=== PATIENT | male | born 1995 | race Caucasian/White ===

== ENCOUNTER 2021-02-06 12:45 | Emergency (ER) | payer OTHER, SELFPAY ==
[2021-02-06 12:50] VITALS: BP 137/92; PULSE 89; RESP 16; TEMP 37.6; O2SAT 100
--- NOTE | 2021-02-06 12:55 | ED.ABDPAIN ---
HPI - Abdominal Pain General Chief Complaint: Abdominal Pain Stated Complaint: abdominal pain Time Seen by Provider: 02/06/21 12:55 Source: patient and RN notes reviewed History of Present Illness HPI narrative: Patient is a 25-year-old male who presents the urgent care with complaints of right upper abdominal pain. Patient states is been ongoing for approximately 3 weeks and seems to worsen after eating. Patient states that around that time he was helping his mother get her riding lawnmower out of the ditch and thinks that he may have pulled a muscle . Patient currently denies of any pain but states that it does occasionally go through to his back. Denies of any nausea or vomiting. Denies of fever. No other acute complaints. No acute distress noted. Patient aware of the plan of care. Some parts of this dictation were generated by voice recognition software and may contain typographical and/or grammatical inaccuracies. Related Data Home Medications Medication Instructions Recorded Confirmed No Home Medications 02/06/21 02/06/21 Allergies Allergy/AdvReac Type Severity Reaction Status Date / Time No Known Allergies Allergy Uncoded 06/01/19 17:52 Review of Systems Review of Systems: Narrative: CONSTITUTIONAL: Denies fever, chills, or sweats. EYES: Denies visual changes, redness, or discharge. ENT: Denies rhinorrhea, congestion, sore throat, or otalgia. CARDIOVASCULAR: Denies chest pain, palpitations, or edema. RESPIRATORY: Denies cough or dyspnea. GASTROINTESTINAL: Reports of right upper abdominal pain without nausea, vomiting or diarrhea GENITOURINARY: Denies dysuria or hematuria. SKIN: Denies rash or itching. MUSCULOSKELETAL: Denies back pain, joint pain, or myalgia. NEUROLOGIC: Denies headache, numbness, or weakness. All other systems reviewed are negative, except as documented in HPI. PMFSH Social History Social History Gender identity (if verbalized by the patient): Male Comments At the time of my signature, I reviewed and agree with the nursing past medical, surgical, social, and family history. There is no relevant family history pertinent to the patient complaint. Exam Narrative: Exam Narrative: GENERAL: This is a well-nourished, well-developed patient, in no apparent distress. HEAD: normocephalic, atraumatic. EYES: PERRL. Sclera clear/white. Vision is grossly intact. EARS: External ears normal NOSE: External nose normal with no obvious nasal discharge, nares without redness, no rhinorrhea. THROAT: Mucous membranes moist NECK: Neck supple CARDIOVASCULAR: Regular rate and rhythm without murmurs, gallops, or rubs. RESPIRATORY: Clear to auscultation. Breath sounds equal bilaterally. No wheezes, rales, or rhonchi. GASTROINTESTINAL: Abdomen soft, mild upper right tenderness, nondistended. Bowel sounds are active. No hepato-splenomegaly, or palpable masses. No guarding. SKIN: warm, intact with no suspicious lesions or rash, good texture and turgor. NEURO: awake, alert, and oriented to person, place and time. There were no obvious focal neurologic abnormalities. EXTREMITIES: No clubbing, cyanosis, or edema. Course Vital Signs Vital signs: Vital Signs Temperature 99.7 F H 02/06/21 12:50 Pulse Rate 89 02/06/21 12:50 Respiratory Rate 16 02/06/21 12:50 Blood Pressure 137/92 H 02/06/21 12:50 Pulse Oximetry 100 02/06/21 12:50 Temperature 99.7 F H 02/06/21 12:50 Pulse Rate 89 02/06/21 12:50 Respiratory Rate 16 02/06/21 12:50 Blood Pressure 137/92 H 02/06/21 12:50 Pulse Oximetry 100 02/06/21 12:50 Reviewed-patient is informed that they may have pre-hypertension or hypertension based on a blood pressure reading in the department. I recommend the patient call the primary care provider listed on their discharge instructions or a physician of their choice this week to arrange follow-up for further evaluation of possible pre-hypertension or hypertension. MDM - Abdominal Pain M
== END 2021-02-06 13:28 | disposition home or self-care (01) ==
PROVIDERS: Emergency Provider Nurse Practitioner Family
DX: R10.11 Right upper quadrant pain (principal)
CPT/HCPCS: 99211; G0463

== ENCOUNTER 2023-03-20 17:52 | Emergency (ER) | payer OTHER, SELFPAY ==
[2023-03-20 18:10] VITALS: BP 131/83; PULSE 98; RESP 18; TEMP 37.1; O2SAT 100
--- NOTE | 2023-03-20 18:12 | ED.EAR ---
HPI - Ear Problem General Chief complaint: Ear Stated complaint: Earache;hair stuck History of Present Illness HPI Narrative: Patient presents with right ear pain. Patient thinks he had something his ears he, he uses Q-tips to clean his ears. Patient denies any loss of hearing no drainage from the ear no knee recent swimming. Related Data Home Medications Medication Instructions Recorded Confirmed buspirone 10 mg tablet 10 mg PO DAILY 03/20/23 03/20/23 vortioxetine 10 mg tablet 10 mg PO DAILY 03/20/23 03/20/23 (Trintellix) Allergies Allergy/AdvReac Type Severity Reaction Status Date / Time No Known Allergies Allergy Verified 03/20/23 18:18 Review of Systems Review of Systems: CONSTITUTIONAL: Denies fever, chills, or sweats. EYES: Denies visual changes, redness, or discharge. ENT: Denies rhinorrhea, congestion, sore throat, or otalgia. CARDIOVASCULAR: Denies chest pain, palpitations, or edema. RESPIRATORY: Denies cough or dyspnea. GASTROINTESTINAL: Denies abdominal pain, nausea, vomiting, or diarrhea. GENITOURINARY: Denies dysuria or hematuria. SKIN: Denies rash or itching. MUSCULOSKELETAL: Denies back pain, joint pain, or myalgia. NEUROLOGIC: Denies headache, numbness, or weakness. PSYCHIATRIC: Denies anxiety or depression. PMFSH Social History Social History Gender identity (if verbalized by the patient): Male Comments At time of signature, agree with nursing past medical, surgical, social and family history. There is no relevant family history pertinent to the presenting complaint Exam Narrative: GENERAL: Well-appearing, well-nourished, and in no acute distress. HEAD: Normocephalic, atraumatic. EYES: PERRLA and EOMI. ENT: Nares clear, no rhinorrhea or epistaxis. Mucous membranes moist. Left TM intact normal canal mild dullness to TM. Right canal red pain with movement have ear TM intact NECK: Supple. CHEST: Clear to auscultation. No respiratory distress. HEART: Regular rate and rhythm. No murmur heard. Normal peripheral pulses. ABDOMEN: Soft, nontender, nondistended, normal active bowel sounds. EXTREMITIES: Normal range of motion. No edema. SKIN: Warm, dry, no rash. NEURO: No focal deficits. Alert and oriented x3. Mary Coma Scale Eye Opening: Spontaneous 4 Mary Coma Scale Motor: Obeys Commands 6 [place] Coma Scale Verbal: Oriented 5 [place] Coma Scale Total 15 Course Course Level of Care: Express Care Visit Discharge Plan Discharge Clinical Impression: Otitis externa Patient Disposition: Home, Self-Care Condition: Stable Instructions: Antibiotic Form, Earache (ED) Additional Instructions: Do not use Q-tips to clean the deep in the ear. Use antibiotic ear drops as prescribed until gone Use Flonase nasal spray as prescribed Follow-up with primary care provider as needed Prescriptions: New ofloxacin 0.3 % drops 5 drp RIGHT EAR BID 7 Days Qty: 5 0RF fluticasone propionate [Flonase Allergy Relief] 50 mcg/actuation spray,suspension 2 spray NASAL BID Qty: 9.9 0RF Rx Instructions: administer into each nostril No Action buspirone 10 mg tablet 10 mg PO DAILY Trintellix 10 mg tablet 10 mg PO DAILY Follow-up/Referrals: Sara,MD Miky [Primary Care Provider] -
== END 2023-03-20 18:25 | disposition home or self-care (01) ==
PROVIDERS: Emergency Provider Nurse Practitioner Family; PCP Hospitalist
DX: H60.91 Unspecified otitis externa, right ear (principal); F41.9 Anxiety disorder, unspecified; F32.A Depression, unspecified
CPT/HCPCS: 99213; G0463

== ENCOUNTER 2023-08-01 12:01 | Emergency (ER) | payer OTHER, SELFPAY ==
[2023-08-01 12:06] VITALS: BP 126/71; PULSE 91; RESP 20; TEMP 37.2; O2SAT 99
--- NOTE | 2023-08-01 12:20 | ED.NAVMDI ---
HPI - Nausea/Vomiting/Diarrhea General Chief complaint: Nausea/Vomiting/Diarrhea Stated complaint: Vomiting/Diarrhea History of Present Illness HPI Narrative: Patient's presents with nausea and vomiting and diarrhea that started after eating little seizures as pizza last night. No abdominal pain no fever no body aches. Patient states he has had emesis x2 and 3 watery stools. No mucus or blood in his stools. Able to tolerate p.o. fluids well. Related Data Home Medications Medication Instructions Recorded Confirmed buspirone 10 mg tablet 10 mg PO DAILY 03/20/23 08/01/23 vortioxetine 10 mg tablet 10 mg PO DAILY 03/20/23 08/01/23 (Trintellix) bupropion HCl 150 mg 24 hr tablet, 150 mg PO DAILY 08/01/23 08/01/23 extended release hydroxyzine HCl 50 mg tablet 50 mg PO Q8H PRN Anxiety 08/01/23 08/01/23 Allergies Allergy/AdvReac Type Severity Reaction Status Date / Time No Known Allergies Allergy Verified 08/01/23 12:18 Review of Systems Review of Systems: CONSTITUTIONAL: Denies fever, chills, or sweats. EYES: Denies visual changes, redness, or discharge. ENT: Denies rhinorrhea, congestion, sore throat, or otalgia. CARDIOVASCULAR: Denies chest pain, palpitations, or edema. RESPIRATORY: Denies cough or dyspnea. GASTROINTESTINAL: Denies abdominal pain, nausea, vomiting, or diarrhea. GENITOURINARY: Denies dysuria or hematuria. SKIN: Denies rash or itching. MUSCULOSKELETAL: Denies back pain, joint pain, or myalgia. NEUROLOGIC: Denies headache, numbness, or weakness. PSYCHIATRIC: Denies anxiety or depression. PMFSH Social History Social History Gender identity (if verbalized by the patient): Male Comments At time of signature, agree with nursing past medical, surgical, social and family history. There is no relevant family history pertinent to the presenting complaint Exam Narrative: GENERAL: Well-appearing, well-nourished, and in no acute distress. HEAD: Normocephalic, atraumatic. EYES: PERRLA and EOMI. ENT: Nares clear, no rhinorrhea or epistaxis. Mucous membranes moist. NECK: Supple. CHEST: Clear to auscultation. No respiratory distress. HEART: Regular rate and rhythm. No murmur heard. Normal peripheral pulses. ABDOMEN: Soft, nontender, nondistended, normal active bowel sounds. EXTREMITIES: Normal range of motion. No edema. SKIN: Warm, dry, no rash. NEURO: No focal deficits. Alert and oriented x3. Mary Coma Scale Eye Opening: Spontaneous 4 Mary Coma Scale Motor: Obeys Commands 6 Mary Coma Scale Verbal: Oriented 5 Mary Coma Scale Total 15 Course Course Level of Care: Express Care Visit Vital Signs Vital signs: Vital Signs Temperature 37.2 C 08/01/23 12:06 Pulse Rate 91 08/01/23 12:06 Respiratory Rate 20 08/01/23 12:06 Blood Pressure 126/71 08/01/23 12:06 Pulse Oximetry 99 08/01/23 12:06 Oxygen Delivery Room Air 08/01/23 12:06 Temperature 37.2 C 08/01/23 12:06 Pulse Rate 91 08/01/23 12:06 Respiratory Rate 20 08/01/23 12:06 Blood Pressure 126/71 08/01/23 12:06 Pulse Oximetry 99 08/01/23 12:06 Oxygen Delivery Room Air 08/01/23 12:06 Discharge Plan Discharge Clinical Impression: Nausea & vomiting Patient Disposition: Home, Self-Care Condition: Stable Instructions: Acute Nausea and Vomiting (ED) Additional Instructions: Clear liquids for the next 8-10 hours, then advance to a bland diet as tolerated A bland diet can consist of--BRAT diet which is bananas, rice, applesauce, and toast Avoid fried, greasy, fatty, fried foods Avoid caffeine, nicotine, and alcohol Return to your regular diet in the next 3-4 days -If you have any worsening of symptoms or any other concerns please go to the ED immediately. Prescriptions: No Action buspirone 10 mg tablet 10 mg PO DAILY Trintellix 10 mg tablet 10 mg PO DAILY bupropion HCl 150 mg tablet extended release 24 hr 150 mg PO DAILY
== END 2023-08-01 12:24 | disposition home or self-care (01) ==
PROVIDERS: Emergency Provider Nurse Practitioner Family; PCP Hospitalist
DX: R11.2 Nausea with vomiting, unspecified (principal); F41.9 Anxiety disorder, unspecified; F32.A Depression, unspecified
CPT/HCPCS: 99211; G0463

== ENCOUNTER 2025-05-21 10:40 | Emergency (ER) | payer MEDICAID, SELFPAY ==
[2025-05-21 10:48] VITALS: BP 143/74; PULSE 77; RESP 20; TEMP 36.6; O2SAT 100
--- NOTE | 2025-05-21 11:00 | ED.NAVMDI ---
HPI - Nausea/Vomiting/Diarrhea General Chief complaint: Nausea/Vomiting/Diarrhea Stated complaint: Nausea/Vomiting Time Seen by Provider: 05/21/25 11:25 Source: patient and RN notes reviewed Mode of arrival: ambulatory Limitations: no limitations History of Present Illness HPI Narrative: 29-year-old male presents concern for 2 day history of nausea. Reports he has had 1 episode of vomiting each day. He denies diarrhea or abdominal pain. He denies fever, body aches, chills, sweats. He denies runny nose, stuffy nose, sore throat. He reports he has missed work. He reports he has anxiety with sometimes gets nausea with anxiety. MD elicited complaint: nausea and vomiting Related Data Home Medications ?Medication ?Instructions ?Recorded ?Confirmed ?Last Taken ?Type buspirone 10 mg tablet 10 mg PO DAILY 03/20/23 08/01/23 Unknown History vortioxetine 10 mg tablet 10 mg PO DAILY 03/20/23 08/01/23 Unknown History (Trintellix) bupropion HCl 150 mg 24 hr tablet, 150 mg PO DAILY 08/01/23 08/01/23 Unknown History extended release hydroxyzine HCl 50 mg tablet 50 mg PO Q8H PRN Anxiety 08/01/23 08/01/23 Unknown History aripiprazole 10 mg tablet mg 05/21/25 Unknown History Allergies Allergy/AdvReac Type Severity Reaction Status Date / Time No Known Allergies Allergy Verified 05/21/25 10:49 Review of Systems Review of Systems: CONSTITUTIONAL: Denies malaise, chills, sweats, or fever. ENT: Denies rhinorrhea, congestion, sinus pain, otalgia or sore throat. CARDIOVASCULAR: Denies chest pain, palpitations, or edema. RESPIRATORY: Denies cough or dyspnea. GASTROINTESTINAL: Denies abdominal pain, diarrhea, bloody, or mucous stools. Reports nausea, vomiting GENITOURINARY: Denies dysuria or hematuria. MUSCULOSKELETAL: Denies myalgia. NEUROLOGIC: Denies headache. All systems reviewed & are unremarkable except as noted in HPI and below PMFSH Social History Social History Gender identity (if verbalized by the patient): Male Comments At time of signature, agree with nursing past medical, surgical, social and family history. There is no relevant family history pertinent to the presenting complaint Exam Narrative: GENERAL: Well-appearing, well-nourished, and in no acute distress. HEAD: Normocephalic, atraumatic. EYES: PERRLA, conjunctivae clear, and EOMI. ENT: Nares clear, turbinates pink, no rhinorrhea or epistaxis. Mucous membranes moist. Oropharynx without edema, erythema, or lesions. Tonsils not enlarged and without exudate. NECK: Supple. No lymphadenopathy CHEST: Speaks in full sentences. No respiratory distress. HEART: Regular rate and rhythm. ABDOMEN: Soft, flat, nondistended, nontender. No guarding, rebound tenderness, or rigidity. No pulsatile masses. Bowel sounds present in all four quadrants. No organomegaly. Negative Edward?s sign. No periumbilical tenderness. No Supra public tenderness or distension. Good femoral pulses bilaterally. No hernia noted. No scars or surface trauma. SKIN: Warm, dry, no rash. NEURO: Alert and oriented x3. PSYCH: Normal mood and affect Course Course Emergency Course: Patient is aware of diagnosis, understands and agrees to treatment plan. Anticipatory guidance given. Patient agrees to follow-up as directed and is aware of reasons to seek care at the emergency department. Portions of this record may have been created with voice recognition software Level of Care: Express Care Visit Vital Signs Vital signs: Vital Signs Temperature 97.9 F 05/21/25 10:48 Pulse Rate 77 05/21/25 10:48 Respiratory Rate 05/21/25 10:48 Blood Pressure 143/74 H 05/21/25 10:48 Pulse Oximetry 100 05/21/25 10:48 Oxygen Delivery Room Air 05/21/25 10:48 Temperature 97.9 F 05/21/25 10:48 Pulse Rate 77 05/21/25 10:48 Respiratory Rate 20 05/21/25 10:48 Blood Pressure 143/74 H 05/21/25 10:48 Pulse Oximetry 100 05/21/25 10:48 Oxygen Delivery Room Air 05/21/25 10:48 Reviewed. MDM - Nausea/Vomiting/Diarrhea MDM Narrative Medical decision making narrative: No evidence of pancreatitis, AAA, cholecystitis, choledocholithiasis, cholangitis, mesenteric ischemia, small bowel obstruction, diverticulitis, colitis, appendicitis, or pelvic etiology such as ovarian/testicular torsion, TOA, or ectopic . Patient has no history of peptic ulcer, H. pylori, chronic aspirin NSAID or corticosteroid use, chronic alcohol use, no history of inflammatory bowel disease, no history of active abdominal infection or malignancy. Patient has no history of hernia or intra-abdominal surgeries, patient denies absence of flatus, constipation, melena, hematemesis. Patient denies post-prandial pain. No pain-out of proportion. Exam findings show no acute concerns or changes; patient is non-toxic appearing and is in no distress. Patient is appropriate for outpatient treatment and follow-up. Critical Care Time Critical Care Time Critical Care Time: No Discharge Plan Discharge Clinical Impression: Nausea and vomiting Patient Disposition: Home Condition: Stable Instructions: Acute Nausea and Vomiting (ED) Additional Instructions: Stay hydrated. Take small sips of fluid containing electrolytes frequently. You should go to the hospital if you experience return of persistent nausea and vomiting that does not resolve and does not allow you to tolerate any food or fluids, persistent fevers for greater than 2-3 more days, increasing abdominal pain that persists despite medications, persistent diarrhea, dizziness, syncope (fainting), or for any other concerns. Patient Language: Spanish Prescriptions: New ondansetron 4 mg tablet,disintegrating 4 mg PO Q6H PRN (Reason: nausea and vomiting) Qty: 6 0RF No Action buspirone 10 mg tablet 10 mg PO DAILY Trintellix 10 mg tablet 10 mg PO DAILY bupropion HCl 150 mg tablet extended release 24 hr 150 mg PO DAILY hydroxyzine HCl 50 mg tablet 50 mg PO Q8H PRN (Reason: Anxiety) aripiprazole 10 mg tablet Follow-up/Referrals: Sara,MD Miky [Primary Care Provider, Unknown] Stand Alone Forms: Work/School Release IP Time of Disposition: 11:29
--- OUTSIDE RECORDS SUMMARY | 2025-05-21 11:16 | XMS_ITS | Clinical Summary ---
Author Organization [facility] Address [address] [place] [id number] Care Team Providers Care Employee Communications Manager Name Role Phone Unavailable Primary Care Provider Unavailabl e Social History Tobacco Use Types Packs/Day Years Used Date Smoking Tobacco: Never Assessed Sex and Gender Information Value Date Recorded Sex Assigned at Not on file Legal Sex Male 5:55 PM [employer] Gender Identity Not on file Sexual Orientation Not on file Plan of Treatment Health Maintenance Due Date Last Done Comments Annual Physical 1999 Hepatitis C 2014 DTaP, Tdap and Td Vaccines ( 1 - Tdap) 2015 Hepatitis B Vaccines (1 of 3 - 19+ 3-dose series) 2015 HPV Vaccines (1 - 3-dose SCD M series) 2023 COVID-19 Vaccine ( - 2023-2 5 season) 2025 Meningococcal B Vaccine Aged Out No l onger eligible based on patient's age to complete this topic Meningococcal Vaccine Aged Out No [place] suzanne eligible based on patient's age to complete this topic Pneumococcal Vaccine: Pediat rics (0 to 5 Years) and At-Risk Patients (6 to 49 Years) Aged Out No longer eligible b ased on patient's age to complete this topic RSV Immunizations Under 20 Months Aged Out No longer eligible based on patient's age to complete this topic
--- OUTSIDE RECORDS SUMMARY | 2025-05-21 11:16 | XMS_ITS | Clinical Summary ---
Author Organization [facility] Address [address] [place] [address] Care Team Providers Care Toolroom Attendant Name Role Phone Miky Ruiz MD Primary Care Provider [phone] Allergies No known active allergies Medications hydrOXYzine (ATARAX) 50 mg tabletIndicati ons:anxiety Take 1 tablet (50 mg total) by mouth every 8 (eight) hours as needed for anxiety 60 tablet 2 06/18/20 23 Active Additional Information Patient not taking.Reported on 04/27/2025 busPIRone (BUSPAR) 10 mg tablet Take 2 tablets (20 mg total) by mouth 2 (two) times a day 360 tablet 1 08/10/20 23 Active albuterol HFA (PROVENTIL HFA,VENTOLIN HFA,PROAIR HFA) 90 mcg/actuation inhaler Inhale 2 puffs every 6 (six) hours as needed for wheezing 3 each 4 11/03/19 25 026 Active fluticasone propion-salmet Logan (ADVAIR DISKUS) 100-50 mcg/dose diskus inhaler Inhale 1 puff 2 (two) times a day Rinse mouth with water after use. Do not swallow. 3 each 4 11/03/19 25 026 Active buPROPion XL (WELLBUTRIN XL) 450 mg 24 hr tabletIndicati ons:major depressive disorder TAKE 1 TABLET (450 MG TOTAL) BY MOUTH DAILY WITH BREAKFAST 90 tablet 1 11/15/19 25 Active Trintellix 20 mg tablet TAKE 1 TABLET BY MOUTH EVERY DAY 30 tablet 2 02/28/20 25 Active ARIPiprazole (ABILIFY) 10 mg tablet TAKE 1 TABLET BY MOUTH EVERY DAY 90 tablet 1 04/25/20 25 Active ARIPiprazole (ABILIFY) 10 mg tablet Take 1 tablet (10 mg total) by mouth daily 90 tablet 1 11/03/19 25 025 Discontinued Active Problems Problem Noted Date Diagnosed Date MAGED (obstructive sleep apnea) 01/03/2025 Dyspnea on exertion 09/28/2024 Assessment & Plan (09/28/2024 12:57 PM LAB ENGINEER): Unclear etiology; patient has history of smoking, currently using nicotine vapes Patient reports getting shortness of breath when even walking to mailbox another short distances Concern for possible deconditioning Will check routine labs today to look for possible metabolic or anemic causes Based on results, would recommend either PFTs or echocardiogram Patient has tachycardia at baseline, may be secondary to anxiety verses arrhythmia Benign paroxysmal positional vertigo of left ear 08/31/2024 Assessment & Plan (09/28/2024 12:57 PM LAB ENGINEER): Stable, generally well controlled, mild response on left; would recommend continued modified Tin on left; if no improvement, will evaluate for other potential causes Continue; 1 patch every 72 hours Assessment & Plan (09/10/2024 9:58 PM LAB ENGINEER): Acute, persistent. Taking meclizine. Alternate trial of scopolamine. If not better, see PCP. Gastroenteritis 12/01/2023 Assessment & Plan (12/02/2023 2:23 PM CDT): Stable, improving; patient now tolerating bland diet; good relief with ondansetron; continue ondansetron p.r.n. for nausea; continue bland diet; discussed with patient that symptoms may last out to 5-7 days No evidence of dehiscence of any surgical sites, the patient reports some pain around superior midline surgical site Nausea and vomiting 12/01/2023 Cholecystitis 11/19/2023 Assessment & Plan (11/30/2023 10:14 AM CDT): Diet as tolerated. Okay to return to work with light duty. No heavy lifting greater than 20 lb for 4 weeks. No submerging incisions for 4 weeks. Please call for any further questions or concerns. Symptomatic cholelithiasis 11/15/2023 Tinea versicolor 10/27/2023 Assessment & Plan (10/27/2023 4:32 PM LAB ENGINEER): Not well controlled, had significant outbreak; had significant improvement prior, has been using head and shoulders for management; however reports recent worsening, including rash going at neck, down torso and legs Will give trial of 3 weeks of fluconazole; continue with salts selsun blue and head and shoulders alternating for topical treatments Gastroesophageal reflux disease without esophagi tis 10/13/2023 Assessment & Plan (10/15/2023 6:37 PM LAB ENGINEER): Omeprazole and tums as needed with overall good control of reflux. No prior EGD. Will continue taking omeprazole daily 30 minutes before breakfast in the morning. Schedule EGD Gallbladder colic 10/13/2023 Assessment & Plan (11/04/2023 12:02 PM CDT): The patient has symptomatic gallbladder disease. We will set him up for laparoscopic cholecystectomy. Postoperative restrictions have been discussed. Postoperative issues such as post cholecystectomy diarrhea have also been discussed. He is in understanding the plan. Assessment & Plan (10/27/2023 4:31 PM LAB ENGINEER): Patient has been working on dietary changes, has fewer symptoms, but still continues to have some colic; patient scheduled to follow up with General surgery to evaluate for possible cholecystectomy Assessment & Plan (10/15/2023 6:39 PM LAB ENGINEER): RUQ pain on and off for the past year, worse with carbonated drinks and alcohol Normal daily BM normal to loose, no hematochezia or melena Lost about 35 lbs over the last 4 months with diet changes Started taking ibuprofen since earlier this month Grandfather with cirrhosis from ETOH, brother with pancreatic issues from diabetes No smoking for the past year, +marijuana use Used to drink heavily about a year ago but now only occasional beer Labs from 10/02/2023 showed normal CMP, CBC, lipase, acute hepatitis panel, UA CT from 2020 showed some equivocal thickening vs decompressed rectum, hepatic steatosis Normal HIDA scan 2020 Recent US 08/31/2023 showed fatty liver and no bile duct dilation, some debris in the gallbaldder with no stones or gallbladder distension Plan Will schedule EGD to evaluate for PUD, gastritis, GERD, if negative then will refer to surgery for cholecystectomy given sludge seen in gallbladder Continue daily omeprazole Avoid NSAIDs RAFAEL (generalized anxiety disorder) 05/28/2022 Assessment & Plan (09/10/2024 10:05 PM LAB ENGINEER): Chronic condition with persistent symptoms. I do not feel that his symptoms are related to psychotropic medications-more likely BPPV. Medication changes today: None from this perspective Insight-oriented, supportive counseling provided. Continued management as discussed Assessment & Plan (10/27/2023 4:31 PM LAB ENGINEER): Stable, improved control, though continues to have significant limitations, can not go to store alone; can not go through drive-through and has difficulty with talking 1 on 1 Continue BuSpar 20 mg b.i.d., hydroxyzine p.r.n. Assessment & Plan (01/20/2023 4:29 PM CDT): Not well controlled, continues to have severe anxiety; difficulty with going to interviews, performing job searches Patient applying for disability due to continued issues with anxiety associated with interacting with people living house Patient follows with psychiatry for management Agoraphobia with panic disorder 03/18/2022 Assessment & Plan (04/28/2023 4:17 PM CDT): Not well controlled; patient continues to struggle with stressful situations as well as leaving house and going out to especially crowded places Continue hydroxyzine 25 mg p.r.n.; BuSpar 20 mg b.i.d. Assessment & Plan (04/02/2022 1:26 PM CDT): Not well controlled, patient reports continues to have anxiety, especially when leaving the house; has been able to go to work at times, but had panic attack this morning Will continue above medications for in BT; refer to psychiatry further treatment Assessment & Plan (03/18/2022 11:26 AM CDT): Not well controlled; patient reports at times he is completely unable to leave house, gets sick when trying to enter some businesses, lease focal places when encountering to many people This is impacted patient's ability to get to physicians appointments, get interviews, her continue with work Patient reports he has also had decreased sexual function due to continued anxiety; though may be also be side effect of medications Continue Abilify 10 mg daily, Paxil 40 mg daily Start mirtazapine 50 mg nightly Patient has referral to Psychiatry, waiting for appointment to be scheduled if no improvement, would consider Valium p.r.n. for panic attacks Class 2 obesity due to exces s calories without serious comorbidity with body mass index (BMI) of 37.0 to 37.9 in adult 11/18/2021 Assessment & Plan (12/15/2024 12:25 PM CDT): Patient has had some weight gain over the past few months; actively working on weight loss through dietary changes including limiting portion sizes Assessment & Plan (10/27/2023 4:32 PM LAB ENGINEER): Stable, improving; continues to lose weight, staying more active, making dietary changes Assessment & Plan (04/28/2023 4:17 PM CDT): Stable, generally well controlled; patient had recent measurements of elevated blood pressure; blood pressure within normal ranges today; per patient general ambulatory measurements 10 to be at target Discussed with patient appropriate ways to measure blood pressure Encourage regular physical activity, including increasing intensity of walks Continue with dietary changes to reduce sodium intake as well as caloric intake to help with weight loss Assessment & Plan (11/18/2021 8:53 AM CDT): Not well controlled; worsening -patient has had weight gain over the past 6 months -will continue to monitor Moderate episode of recurrent major depressive d isorder 03/12/2021 Assessment & Plan (10/27/2023 4:31 PM LAB ENGINEER): Stable, generally well controlled, improving; had brief worsening of mood during great grandmother's ; since then has been reassessing, engaging with individual counseling Managed with psychiatry, continue bupropion 300 mg daily, hydroxyzine 25 mg; Trintellix 20 mg daily, BuSpar 20 mg b.i.d. Assessment & Plan (04/28/2023 4:16 PM CDT): Stable, improving; continues to follow with psychiatry for management of symptoms Patient reports depression is generally improved, though has some anhedonia; patient can still enjoying appreciate his children having new experiences Continue bupropion 150 mg daily, Trintellix 10 mg daily Assessment & Plan (01/20/2023 4:28 PM CDT): Improving; no longer having suicidal ideations; continues to feel down Patient has started do more things, has difficulty with self motivating, but has supportive further for patient can not do more Patient reports feeling down, feeling like f ailure ; encouraged individual counseling to help address Assessment & Plan (05/18/2022 3:50 PM CDT): Worsening, not well controlled; patient recently seen in emergency room and evaluated for suicidal thoughts; home with observation Will continue Paxil 60 mg daily, increase Abilify to 20 mg daily Patient follow-up with psychiatry for further management Assessment & Plan (04/02/2022 1:25 PM CDT): Not well controlled, patient reports recently worsening depression as well as worsening anxiety with panic attacks Will continue Abilify 10 mg daily, mirtazapine 50 mg nightly; increase paroxetine to 6 mg daily Patient follow-up for schedule appointment discuss referral with psychiatry Assessment & Plan (03/18/2022 11:26 AM CDT): Stable, improving; patient reports he no longer has any suicidal thoughts Patient reports he does sleep many hours a day, especially does not have activities in order to help get tox today Patient is able to go fishing, play video games and do other hobbies, repairs to have limited enjoyment Continue Abilify 10 mg daily, Paxil 40 mg daily Start mirtazapine 50 mg nightly Assessment & Plan (12/12/2021 3:58 PM CDT): Not well controlled Patient reports depression continues to worsen; has racing thoughts, vivid dreams Since last appointment patient has quit collagen quit working due to anxiety and nausea associated with anxiety and depression Patient reports suicidal thoughts and ideations, no plan or thoughts to go through with suicidal thoughts Given significant worsening or lack of improvement symptoms will refer to Psychiatry Today I start Abilify 5 mg daily Transition from Prozac to Paxil 20 mg Discussed with patient importance of going to emergency department if suicidal thoughts and ideations become stronger, more persistent, intrusive or patient has thoughts of acting Assessment & Plan (11/18/2021 8:54 AM CDT): Not well controlled; patient has some worsening depressive symptoms, though no new episodes of suicidality -patient reports vivid dreams, now with sleep disturbances as well as some confusion, which may be related to poor quality sleep -will decrease Prozac to 20 mg daily; evaluate in 2-4 weeks for changes in dreams and mood; determine if patient needs discontinuation of therapy, or adjustment to another antidepressant -encourage patient to continue to engage with counseling Assessment & Plan (06/10/2021 3:25 PM CDT): Not well controlled, patient reports anxiety has been worse over the past 1 month, may be associated with change in season Patient reports some of the thoughts of going away and not being care; the has no specific plan, no evidence of any while at home Foot fruits activity related to children family Will increase Prozac to 40 mg daily encourage exercise and positive activity in order to improve outlook on life patient taken to counselor and in discussion for individual counseling session Assessment & Plan (04/09/2021 4:49 PM CDT): Stable, well controlled Patient reports few side effects with Prozac 20 mg daily, however reports in general has improved mood and improved attitude and energy levels more than make for side effects At this time patient like to continue Prozac 20 mg daily Will continue to address irregular intervals medication dosage to ensure side effects are not more severe Assessment & Plan (03/12/2021 3:57 PM CDT): Stable, not well controlled Patient continues to have severe symptoms related to depression including decreased motivation, and anhedonia Patient also has passive thoughts not being here, disappearing, wondering for the same would be better off if she were not here Encouraged patient to counseling, will start fluoxetine 20 mg today continue monitor Patient reports some family history, mother and grandmother both had questions; mother's being treated with bupropion and trazodone Chronic pain of right knee 11/22/2020 Resolved Problems Problem Noted Date Diagnosed Date Resolved Date Closed fracture of proximal end of tibia 07/31/2011 11/18/2021 Closed fracture of ankle 02/25/2011 Encounters Date Type Department Care Team Description 05/01/2025 9:45 AM CDT Telemedicine [facility] [address] [facility] [address] [place] [phone] Jt Lopez MD Moderate episode of recurrent major depressive disorder (HCC) (Primary Dx); RAFAEL (generalized anxiety disorder); Agoraphobia with panic disorder 04/27/2025 11:00 AM CDT Office Visit [facility] [address] [place] [address] [place] [id number] Jaciel Vera MD MAGED (obstructive sleep apnea) (Primary Dx); Hypersomnia with sleep apnea; Severe obesity (BMI 35.0-35.9 with comorbidity) (HCC) 03/01/2025 11:15 AM CDT Telemedicine [facility] [address] [facility] [address] [place] [phone] Jt Lopez MD Moderate episode of recurrent major depressive disorder (HCC) (Primary Dx); Agoraphobia with panic disorder; RAFAEL (generalized anxiety disorder) from Last 3 Months Immunizations Immunization Administration Dates Next Due DTP 04/08/2001, 8,04/09/1997,02/06,1996 Hep A, Pediatric 06/02/2011 Hep A, Unspecified 10/23/2008 Hep B, Unspecified 04/09/1997,1996, 997 HiB 01/07/1998, 7,02/06/1997,12/07 Influenza LAIV (Nasal) 05/12/2012 Influenza, Live, Trivalent, Intranasal 2 Influenza, Quadrivalent, Spl it, Preservative Free, Intramuscular 08/02/2014 Influenza, Unspecified 10/16/2024(Deferr ed: Patient Refused),05/29/2024(Deferred: Patient Refused),12/02/2023(Deferred: Patient Refused),05/23/2023(Deferred: Patient Refused),04/28/2023(Deferred: Patient Refused),04/23/2023(Deferred: Patient Refused),01/20/2023(Deferred: Patient Refused),05/23/2022(Deferred: Patient Refused),11/18/2021(Deferred: Patient Refused),06/10/2021(Deferred: Patient Refused),08/23/2020(Deferred: Patient Refused),08/23/2020(Deferred: Patient Refused),08/23/2020(Deferred: Patient Refused),08/23/2019(Deferred: Patient Refused),08/23/2019(Deferred: Patient Refused),06/02/2011 MMR 04/08/2001,10/09/1997 Meningococcal MCV4P (Menactra) 10/23/2008 Polio, Unspecified 04/08/2001, 7,02/06/1997,12/07 Tdap 08/23/2009,10/23/2008 Varicella 10/23/2008,04/09/1998 Surgical History Surgery Date Site/Laterality Comments ANKLE FRACTURE SURGERY 01/21/2011 - 02/19/2011 Left CHOLECYSTECTOMY 11/19/2023 Medical History Medical History Date Comments Ankle fracture 01/2011 left ankle Tibia fracture 07/2011 Abdominal pain 01/2021 right upper quad rant pain Closed fracture of proximal end of tibia 011 Closed fracture of ankle 02/25/2011 Anxiety Covid Depression Family History Medical History Relation Name Comments Diabetes Brother 2 Jc Kenn Heart attack Father Heart disease Father Heart attack Maternal Grandfather Baudilio Goyal No Known Problems Maternal Grandmother Depression Mother Brii Smith Cancer Other 1 Family history of Cancer; Diabetes Other 2 Family history of Diabetes mellitus; Hypertension Other 3 Family history of Hypertension; No Known Problems Paternal Grandmother Diabetes Sister Relation Name Status Comments Brother 1 Alive Brother 2 Jc Hawk Father Alive Maternal Grandfather Baudilio Goyal Alive Maternal Grandmother Alive Mother Brii Smith Alive Other 1 Other 2 Other 3 Paternal Grandfather Paternal Grandmother Alive Sister Social History Tobacco Use Types Packs/Day Years Used Date Smoking Tobacco: Every Day Cigarettes Last attempted to quit: 02/10/2021 Vaping Smokeless Tobacco: Never Tobacco Cessation:Ready to Q uit: Not Asked; Counseling Given: Not Answered Comments:ppd smoker for 10 years, quit last month Passive Exposure Comments:vapes Alcohol Use Standard Drinks/Week Comments Yes 2 (1 standard drink = 0.6 oz pur e alcohol) PHQ-2 Answer Date Recorded PHQ-2 Total Score (If total score is 3 or more points, staff should administer the PHQ-9) 2 12/02/2023 AUDIT-C Answer Date Recorded Q1: How often do you have a drink containing alc ohol? 2-3 times a week 04/27/2025 Q2: How many drinks containi ng alcohol do you have on a typical day when you are drinking? 1 or 2 04/27/2025 Q3: How often do you have si x or more drinks on one occasion? Monthly 04/27/2025 Personal Safety Answer Date Recorded Have you ever been in or are you currently in a harmful physical or emotional relationship or is someone making you feel afraid or unsafe? Denies 12/01/2023 Sex and Gender Information Value Date Recorded Sex Assigned at Not on file Legal Sex Male 1:53 AM LAB ENGINEER Gender Identity Male 09/29/2021 6:18 AM LAB ENGINEER Sexual Orientation Straight 09/29/2021 6: 18 AM LAB ENGINEER Obstetrics History Last Filed Vital Signs Vital Sign Reading Time Taken Comments Blood Pressure 142/84 04/27/2025 11:06 AM CDT Pulse 93 04/27/2025 11:06 AM CDT Temperature 36.8 C (98.2 F) 12/15/2024 9:41 AM CDT Respiratory Rate 16 09/28/2024 11:3 4 AM LAB ENGINEER Oxygen Saturation 98% 04/27/2025 11: 06 AM CDT Inhaled Oxygen Concentration - - Weight 137.5 kg (303 lb 3.2 oz) 025 11:06 AM CDT Height 190.5 cm (6' 3) 02/16/2025 11:0 7 AM CDT Body Mass Index 37.9 02/16/2025 11:07 AM CDT Plan of Treatment Health Maintenance Due Date Last Done Comments Regular Well Visit/Exam 18-64 2014 DTaP/Tdap/Td Vaccine (8 - Td or Tdap) 08/23/2019 08/23/2009, 10/23/2008, 04/08/2001, Additional history exists HPV Vaccines (1 - 3-dose SCDM series) 2023 Depression Screening 12/01/2024 12/02/2023, 09/02/2023, 04/28/2023, Additional history exists Influenza Vaccine (#1) 2025 4, 05/12/2012, 05/12/2012, Additional history exists Pneumococcal vaccine <65 (1 of 2 - PCV) 10/01/2025 Postponed from 2015 (Patient declined, but will receive in the future) Hepatitis B Screening Completed 04/09/1997 , 1996, 1996 Varicella Vaccines Completed 10/23/2008, 04/09/1998 Hepatitis C Screening Completed 10/02/2023 Procedures Procedure Name Priority Date/Time Associated Diagnosis Comments HEPATITIS PANEL, ACUTE STAT 10/02/2023 3:19 PM LAB ENGINEER from Last 3 Months or Most Recently Relevant to Health Maintenance Results * Hepatitis panel, acute Blood (10/02/2023 3:19 PM LAB ENGINEER) Hep A IgM Nonreactive Nonreactive [facility] (DARYL) Comment: Interpretive Data: If Hep A IgM Ab is reported as Equivocal, a new sample should be drawn in two weeks for testing. Current interpretive data was last revised on 19. Testing performed by: [facility], [address] [place] [address]., [id number] Hep B core IgM Nonreactive Nonreactive Raymond GARCIA (DARYL) Comment: Interpretive Data If HepB Core IgM Ab is reported as Equivocal, a new sample should be drawn in two weeks for testing. Current interpretive data was last revised on 19. Testing performed by: [facility], [address] [place] [address]., [id number] Hep C Ab Nonreactive Nonreactive [facility]AT [facility] (DARYL) Comment: Interpretive Data Nonreactive: Antibodies to HCV not detected. Does NOT exclude the possibility of recent exposure to HCV. Equivocal: Equivocal for HCV antibodies. Supplemental molecular testing will be automatically performed to determine infection status in accordance with current CDC screening recommendations. Reactive: Positive for HCV antibodies. This may represent current or past HCV infection. Supplemental molecular testing will be automatically performed to determine current infection status in accordance with current CDC screening recommendations. Interpretive data was last revised on 2019. Testing performed by: [facility], [address] [place] [address]., [id number] HepBsAg Nonreactive Nonreactive RA[facility]AT GARCIA (DARYL) Comment:Testing performed by : [facility], [address] [place] [address]., [id number] Blood 10/02/2023 3:19 PM LAB ENGINEER 10/03/2023 11:16 AM LAB ENGINEER Bakari Peralta MD LAB MICROBIOLOGY - GENERAL ORDERABLES Final Result RA[facility]AT G[facility] (DARYL) 1 [facility] Department [place] [address] from Last 3 Months or Most Recently Relevant to Health Maintenance Insurance [facility] Advance Directives For more information, please contact: [phone] * Full Code (Latest Code Status on File) Date Activated Date Inactivated Comments 10/20/2023 11:39 AM 10/20/2023 5:57 PM * Full Code Date Activated Date Inactivated Comments 10/20/2023 11:39 AM 10/20/2023 11:39 AM Care Teams Toolroom Attendant Relationship Specialty Start Date End Date Miky [place] [id number] PCP - General Family Medicine 02/10/21
--- OUTSIDE RECORDS SUMMARY | 2025-05-21 11:16 | XMS_ITS | Clinical Summary ---
Author Organization [facility] Address [address] [place] [address] Phone Care Team Providers Care Music Artist Name Role Phone Provider, None Primary Care Provider Unavailabl e Allergies No known active allergies Medications No known medications Social History Tobacco Use Types Packs/Day Years Used Date Smoking Tobacco: Former Smokeless Tobacco: Never Alcohol Use Standard Drinks/Week Comments Not Currently 0 (1 standard drink = 0.6 oz pur e alcohol) Sex and Gender Information Value Date Recorded Sex Assigned at Not on file Legal Sex Male 11:23 PM CDT Gender Identity Not on file Sexual Orientation Not on file Last Filed Vital Signs Vital Sign Reading Time Taken Comments Blood Pressure 134/69 02/16/2021 3:40 PM CDT Pulse 76 02/16/2021 3:40 PM CDT Temperature 37.1 C (98.8 F) 02/16/2021 12:29 PM CDT Respiratory Rate 16 02/16/2021 3:40 PM CDT Oxygen Saturation 99% 02/16/2021 12:29 PM CDT Inhaled Oxygen Concentration - - Weight 113.4 kg (250 lb) 02/16/2021 12:29 PM CDT Height 190.5 cm (6' 3) 02/16/2021 12:29 PM CDT Body Mass Index 31.25 02/16/2021 12:29 PM CDT Plan of Treatment Health Maintenance Due Date Last Done Comments Hepatitis C Virus (HCV) Screening 1996 Human Papillomavirus (HPV) Immunization (1 - 3-dose SCDM series) 2023 Influenza Immunization (#1) 04/23/202507/23, 05/12/2012, 06/02/2011 SARS-COV-2 Immunization (1 - 2023-25 season) 2025 Respiratory Syncytial Virus (RSV) Immunization (Adult) (1 - 1-dose 75+ series) 2071 Hepatitis B Immunization Completed 997, 1996, 1996 DTaP/Tdap/Td Immunization Discontinued 2008, 04/08/2001, 01/07/1998, Additional history exists Meningococcal Immunization (ACWY) Aged Out 10/23/2008 No longer eligible based on patient's age to complete this topic TdaP Immunization Completed 10/23/2008 Pneumococcal Immunization Combined Aged Out No longer eligible based on patient's age to complete this topic Rotavirus Immunization Aged Out No lo nger eligible based on patient's age to complete this topic Insurance MEDICAID [employer] Care Teams Music Artist Relationship Specialty Start Date End Date Provider, None [place] PCP - General 02/16/21
--- OUTSIDE RECORDS SUMMARY | 2025-05-21 11:16 | XMS_ITS | Encounter Summary ---
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
--- OUTSIDE RECORDS SUMMARY | 2025-05-21 11:17 | XMS_ITS | Clinical Summary ---
Author Organization [facility] Address [address] [place] [address] Care Team Providers Care Homeworker Name Role Phone Miky Ruiz MD Primary Care Provider [phone] Source Comments [facility],non-owned Affiliates and Associated Physician Practices is amultiple site organization consisting of ambulatory clinics and hospital sitesin [place], [place], [place] and [place]. This disclosure is being madepursuant to the Care Everywhere program and may not contain all information available regarding this patient. Last updated 18.[facility] Allergies No known active allergies Medications * Be aware that medications may not be up to date on this document. Alwaysverify current medications with the patient. azithromycin (ZITHROMAX) 250 MG tablet Take 250 mg by mouth once daily. Active Social History Tobacco Use Types Packs/Day Years Used Date Smoking Tobacco: Every Day Cigars Smokeless Tobacco: Never Alcohol Use Standard Drinks/Week Comments Not Currently 0 (1 standard drink = 0.6 oz pur e alcohol) AUDIT-C Answer Date Recorded Q1: How often do you have a drink containing alcohol? Never 05/05/2022 Q2: How many drinks containi ng alcohol do you have on a typical day when you are drinking? Patient does not drink Q3: How often do you have si x or more drinks on one occasion? 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 Gender Identity Not on file Sexual Orientation Not on file Last Filed Vital Signs Vital Sign Reading Time Taken Comments Blood Pressure 139/86 05/05/2022 11:55 AM CDT Pulse 101 05/05/2022 11:55 AM CDT Temperature 36.9 C (98.4 F) 05/05/2022 11:55 AM CDT Respiratory Rate 16 05/05/2022 11:55 AM CDT Oxygen Saturation 96% 05/05/2022 11:55 AM CDT Inhaled Oxygen Concentration - - Weight 133.8 kg (295 lb) 05/05/2022 11:55 AM CDT Height 190.5 cm (6' 3) 05/05/2022 11:55 AM CDT Body Mass Index 36.87 05/05/2022 11:55 AM CDT Plan of Treatment Health Maintenance Due Date Last Done Comments HIV SCREENING 2011 HEPATITIS C SCREENING 10/04/2014 DTAP/TDAP/TD VACCINES (1 - Tdap) 2015 HEPATITIS B VACCINE (1 of 3 - 19+ 3-dose series) 2015 PNEUMOCOCCAL VACCINE (1 of 2 - PCV) 2015 HPV VACCINE (1 - 3-dose SCDM series) 2023 DEPRESSION SCREENING 08/23/2024 COVID-19 VACCINE (1 - 2023-2 5 season) 2025 INFLUENZA VACCINE (#1) 2025 4, 06/02/2011 ZOSTER VACCINE (1 of 2) 2046 HIB VACCINE Aged Out No longer eligi ble based on patient's age to complete this topic MENINGOCOCCAL (Group B) VACCINE SHARED DECISION-MAKING Aged Out No longer eligible based on patient's age to complete this topic MENINGOCOCCAL GROUPS A/C/Y/W VACCINE Aged Out No longer eligible b ased on patient's age to complete this topic Insurance [facility] MEDICAID - OUT OF STATE [facility] Care Teams Homeworker Relationship Specialty Start Date End [place] [address] PCP - General Family Medicine 05/05/22
== END 2025-05-21 11:31 | disposition home or self-care (01) ==
PROVIDERS: Emergency Provider Nurse Practitioner; PCP Hospitalist
DX: R11.2 Nausea with vomiting, unspecified (principal); F41.9 Anxiety disorder, unspecified; F32.A Depression, unspecified
CPT/HCPCS: 99213; G0463